=== PATIENT | female | born 1975 | race Caucasian/White ===

== ENCOUNTER 2017-02-15 18:43 | Emergency (ER) | payer OTHER ==
[2017-02-15 18:48] VITALS: TEMP 96.7
[2017-02-15] MEDS ORDERED: SODIUM CHLORIDE 0.9% 500 ML IV ONE (19:21)
[2017-02-15] MEDS ORDERED: ONDANSETRON 4 MG/2 ML VIAL IVP STA (19:21)
[2017-02-15] MEDS ORDERED: SODIUM CHLORIDE 0.9% 1,000 ML IV SCH (19:30)
[2017-02-15 20:09] VITALS: PULSE 98
[2017-02-15 20:38] VITALS: BP 119/78; RESP 16
--- NOTE | 2017-02-15 20:58 | ED ---
Overdose HPI - General Chief Complaint: Overdose Stated Complaint: Overdose Time Seen by Provider: 02/15/17 19:07 Source: patient, EMS Mode of arrival: EMS - History of Present Illness Initial Comments: This 42-year-old white female presents as a heroin overdose. She apparently was doing heroin earlier today. She is unsure what time. She denies utilizing more heroin than normal. She does utilize heroin intravenously. EMS was called apparently for some unresponsiveness. They gave her 2 mg of Narcan and she did wake up. She is complaining of some nausea now but has no other complaints. No other modifying factors. - Related Data Home Medications Medication Instructions Recorded Confirmed No Known Home Medications [No 02/15/17 02/15/17 Known Home Medications] Allergies Allergy/AdvReac Type Severity Reaction Status Date / Time No Known Allergies Allergy Verified 02/15/17 20:23 Review of Systems ROS Statement: Those systems with pertinent positive or pertinent negative responses have been documented in the HPI. ROS Other: All systems not noted in ROS Statement are negative. Past Medical History History of Any Multi-Drug Resistant Organisms: None Reported Past Psychological History: Depression Smoking Status: Current every day smoker Past Alcohol Use History: Occasional Past Drug Use History: Heroin, IV Drug Use General Exam - General Exam Comments Initial Comments: GENERAL: The patient is well nourished and well hydrated. VITAL SIGNS: Heart rate, blood pressure, respiratory rate reviewed as recorded in nurse's notes. EYES: Pupils are round and reactive. Extraocular movements are intact. No conjunctival / lid redness or swelling. ENT: No external evidence of injury, swelling, or ecchymosis. Airway is patent. Throat is clear. NECK: Nontender. No swelling or evidence of injury. No subcutaneous emphysema. Trachea is midline. No thyroid mass. HEART: Regular rate and rhythm. Good peripheral pulses. LUNGS/CHEST: Breath sounds clear and equal bilaterally. No rales, rhonchi, or wheezes. No ecchymosis, subcutaneous emphysema, or tenderness. ABDOMEN: Abdomen soft without tenderness. No palpable masses or organomegaly. No peritoneal signs. No abdominal wall swelling or ecchymosis. EXTREMITIES: No extremity tenderness. Normal muscle tone and function. No thoracolumbar tenderness. NEUROLOGIC: Sensation is grossly intact. Cranial nerve exam reveals face is symmetrical, tongue is midline, speech is clear. SKIN: No abrasions or ecchymosis is noted. No induration or masses noted. There are needle track harrington to bilateral arms. PSYCHIATRIC: Alert and oriented. Appropriate behavior and judgment. Course Vital Signs 02/15/17 02/15/17 02/15/17 18:44 20:08 20:34 Temperature 96.7 F L Pulse Rate 100 98 98 Respiratory 14 18 16 Rate Blood Pressure 149/84 119/78 O2 Sat by Pulse 100 100 100 Oximetry Medical Decision Making - Medical Decision Making The patient was seen and examined. She received some fluid hydration and some Zofran. She is feeling better on recheck. Her mental status has remained quite stable. She was counseled in regard to her heroin abuse extensively. Her EKG shows a normal sinus rhythm at a rate of [address]-T wave changes noted. The NC interval is 114, QS duration is 86, and QTc interval is 451. She is lucid on recheck and would like to be discharged. She has been watched for approximately 2 hours and it is felt as though she is stable for discharge at this point time. Disposition Clinical Impression: Heroin overdose Disposition: HOME SELF-CARE Condition: Good Instructions: Opioid Overdose (ED) Referrals: None,Stated [Primary Care Provider] - 1-2 days Time of Disposition: 20:57
== END 2017-02-15 21:03 | disposition home or self-care (01) ==
LOC: EC 18:43
DX: T40.1X1A Poisoning by heroin, accidental (unintentional), initial encounter (principal); R11.0 Nausea; F17.200 Nicotine dependence, unspecified, uncomplicated
CPT/HCPCS: 93005; 99284; 96374; 96361; J2405

== ENCOUNTER 2017-05-04 17:11 | Emergency (ER) | payer OTHER ==
[2017-05-04 17:36] VITALS: TEMP 98.2
[2017-05-04] MEDS ORDERED: ceFAZolin 1,000 MG VIAL IM STA (18:01)
--- NOTE | 2017-05-04 18:41 | XR ---
EXAMINATION TYPE: XR foot complete LT DATE OF EXAM: 05/04/2017 COMPARISON: NONE HISTORY: Pain after injury TECHNIQUE: 3 views FINDINGS: Metatarsals appear intact. There is a plantar calcaneal spur. There is soft tissue swelling in the forefoot. I see no fracture. IMPRESSION: Soft tissue swelling. No fracture.
--- NOTE | 2017-05-04 18:42 | XR ---
EXAMINATION TYPE: XR ankle complete LT DATE OF EXAM: 05/04/2017 COMPARISON: NONE HISTORY: Pain and swelling TECHNIQUE: 3 views FINDINGS: Ankle mortise is anatomic. There is mild soft tissue swelling over the lateral malleolus. I see no fracture. IMPRESSION: Soft tissue swelling. No fracture.
--- NOTE | 2017-05-04 18:47 | ED ---
Skin/Abscess/FB HPI - General Chief complaint: Skin/Abscess/Foreign Body Stated complaint: ARM SWELLING AND HOT, LEFT ANKLE PAIN/SWELLING Time Seen by Provider: 05/04/17 17:53 Source: patient Mode of arrival: ambulatory Limitations: no limitations - History of Present Illness Initial comments: Patient is a 42-year-old female presenting to the emergency department with complaints of right forearm erythema and swelling that started yesterday morning. Patient is unsure if she was bitten by a mosquito or what happened. Patient is also complaining of left ankle pain and swelling after she fell while working on a roof 2 days ago. Patient reports previous sprain to left ankle in the past. Patient currently rates left ankle pain 7 out of 10 , described as sharp, exacerbated with movement, relieved at rest. Patient was ambulatory at scene of injury and is ambulatory in the emergency department. Patient states she took Motrin and applied ice to her left ankle prior to arrival. Patient is up-to-date on tetanus immunization. Patient denies history of MRSA. Patient denies previous antibiotic use in the last 30 days. Patient denies chills, fevers, nausea, vomiting, shortness of breath, chest pain , or abdominal pain. Patient denies numbness or tingling. - Related Data Previous Rx's Medication Instructions Recorded Cephalexin [Keflex] 500 mg PO Q6HR #28 cap 05/04/17 Allergies Allergy/AdvReac Type Severity Reaction Status Date / Time No Known Allergies Allergy Verified 05/04/17 17:36 Review of Systems ROS Statement: Those systems with pertinent positive or pertinent negative responses have been documented in the HPI. ROS Other: All systems not noted in ROS Statement are negative. Past Medical History Past Medical History: No Reported History History of Any Multi-Drug Resistant Organisms: None Reported Additional Past Surgical History / Comment(s): lap cosmetic surg Past Psychological History: Depression Smoking Status: Current every day smoker Past Alcohol Use History: Occasional Past Drug Use History: Heroin, IV Drug Use, Marijuana General Exam - General Exam Comments Initial Comments: GENERAL: Pt awake and alert, well-appearing, well-nourished, and in no acute distress. HEAD: Atraumatic, normocephalic. EYES: Pupils equal, round, sclera anicteric, conjunctiva are normal. ENT: Moist mucous membranes. NECK:Normal range of motion, supple without lymphadenopathy. LUNGS: Breath sounds clear to auscultation bilaterally. No wheezes, rales, or rhonchi. HEART: Heart S1, S2, no S3 or S4. Regular rate and rhythm. No murmurs, rubs or gallops. ABDOMEN: Soft, nontender, nondistended, normoactive bowel sounds. NEUROLOGICAL: Pt oriented x 3. No focal deficits noted. Strength and sensation grossly intact. PSYCH: Normal mood, normal affect. SKIN: Erythema noted to right forearm from wrist extending up right forearm. No evidence of drainage or abscess. Limitations: no limitations Left Knee exam: Present: normal inspection, full ROM. Absent: tenderness, swelling Lower Leg exam: Present: normal inspection, full ROM. Absent: tenderness, swelling Ankle exam: Present: full ROM, tenderness (Tenderness, swelling, and ecchymosis noted to primarily left lateral malleolus and extending to dorsal aspect of left foot.), swelling, ecchymosis, erythema. Absent: crepitus Foot/Toe exam: Present: full ROM, tenderness, swelling, ecchymosis. Absent: dislocation, puncture wound, foreign body, calcaneal tenderness, tenderness at base of 5th metatarsal Neurovascular tendon exam: Present: no vascular compromise. Absent: motor deficit, sensory deficit, tendon deficit, extremity cold to touch, foot drop, significant pain with passive ROM of distal joint Gait: not tested/not observed Course Vital Signs 05/04/17 17:34 Temperature 98.2 F Pulse Rate 83 Respiratory 18 Rate Blood Pressure 129/67 O2 Sat by Pulse 100 Oximetry Medical Decision Making - Medical Decision Making Left ankle sprain without evidence of fracture or dislocation. Xavier wrap applied to left ankle. Cellulitis to right forearm. Patient given a dose of Ancef in the emergency department and provided with prescription for Keflex. Patient instructed to return to the emergency department with worsening cellulitis. Patient instructed to follow-up with primary care physician and orthopedic service if needed. Patient agrees with treatment plan. Discharge instructions and return parameters reviewed. - Radiology Data Radiology results: report reviewed Left foot x-ray: Soft tissue swelling no fracture. Left ankle x-ray: Ankle mortise is anatomic. Mild soft tissue swelling over the lateral malleolus. No fracture. Disposition Clinical Impression: Cellulitis of forearm, right, Left ankle sprain Disposition: HOME SELF-CARE Condition: Good Instructions: Cellulitis (ED), Ankle Sprain (ED) Additional Instructions: Avoid activity that causes pain Ice 20 minutes 4 times a day usually for 2-3 days Xavier wrap to provide support and limit swelling Keep elevated as much as possible 24-48 hours. Continue Motrin 800 mg every 8 hours around the clock for 2 days. Return to the emergency department with symptoms of increased swelling, pain, numbness, tingling, or foot feeling cold to touch. Return to the emergency department with increased redness to right arm, nausea, vomiting, fevers or any other worsening symptoms. Follow-up with primary service and orthopedic service as directed. Prescriptions: Cephalexin [Keflex] 500 mg PO Q6HR #28 cap Referrals: None,Stated [Primary Care Provider] - 1-2 days Time of Disposition: 18:47
[2017-05-04 18:57] VITALS: BP 124/72; PULSE 72; RESP 16
== END 2017-05-04 18:50 | disposition home or self-care (01) ==
LOC: EC 17:11
DX: S93.402A Sprain of unspecified ligament of left ankle, initial encounter (principal); S90.32XA Contusion of left foot, initial encounter; L03.113 Cellulitis of right upper limb; F17.200 Nicotine dependence, unspecified, uncomplicated; W19.XXXA Unspecified fall, initial encounter; Y93.89 Activity, other specified
CPT/HCPCS: 73610; 73630; 99283; 96372; J0690

== ENCOUNTER 2019-10-13 03:12 | Emergency (ER) | payer OTHER ==
[2019-10-13] MEDS ORDERED: diphenhydrAMINE 50 MG/ML 1 ML VIAL IVP STA (03:18)
[2019-10-13] MEDS ORDERED: FAMOTIDINE 20 MG/2 ML VIAL IV STA (03:18)
[2019-10-13] MEDS ORDERED: methylPREDNISolone SOD SUCCI 125 MG/2 ML VIAL IV STA (03:18)
[2019-10-13] MEDS ORDERED: EPINEPHrine 1 MG/ML 1 ML AMP IM STA (03:19)
[2019-10-13 03:28] VITALS: TEMP 97.6
--- NOTE | 2019-10-13 03:28 | ED ---
Allergic Reaction HPI - General Stated complaint: Allergic Reaction Time Seen by Provider: 10/13/19 03:18 - History of Present Illness Initial Comments: 's patient is a 44-year-old woman who presents to be evaluated for suspected ALLERGIC reaction. Patient states that between 12 hours ago she started noticing that she was feeling itchy and then developing hives. The patient then also felt like she was having some swelling of the lips and tongue. She felt she should evaluated for this. Patient has had prior reactions, but does not know what she may have reacted to this time. MD Complaint: allergic reaction, hives, facial swelling Onset/Timin -: hour(s) Exposure: unknown Symptoms: itching, facial swelling, lip swelling Severity: moderate Treatment Prior to Arrival: none Previous Allergy History: other (Prior ALLERGIC reactions) - Related Data Previous Rx's Medication Instructions Recorded Cephalexin [Keflex] 500 mg PO Q6HR #28 cap 05/04/17 EPINEPHrine (Auto Inject) [Epipen] 0.3 mg IM ONCE PRN #2 pen 10/13/19 Famotidine [Pepcid] 20 mg PO BID #14 tablet 10/13/19 predniSONE 60 mg PO DAILY #30 tab 10/13/19 Allergies Allergy/AdvReac Type Severity Reaction Status Date / Time No Known Allergies Allergy Verified 05/04/17 17:36 Review of Systems ROS Statement: Those systems with pertinent positive or pertinent negative responses have been documented in the HPI. ROS Other: All systems not noted in ROS Statement are negative. Constitutional: Denies: fever, chills Eyes: Denies: eye pain, vision change Respiratory: Denies: cough, dyspnea, wheezes Cardiovascular: Denies: chest pain, syncope Gastrointestinal: Denies: abdominal pain, vomiting, diarrhea Skin: Reports: as per HPI, rash Past Medical History Past Medical History: No Reported History History of Any Multi-Drug Resistant Organisms: None Reported Additional Past Surgical History / Comment(s): lap cosmetic surg Past Psychological History: Depression Smoking Status: Current every day smoker Past Alcohol Use History: Occasional Past Drug Use History: Heroin, IV Drug Use, Marijuana General Exam General appearance: alert, in no apparent distress Head exam: Present: atraumatic, normocephalic Eye exam: Present: normal appearance. Absent: scleral icterus, conjunctival injection ENT exam: Present: mucous membranes moist, other (She does have mild degree of bilateral tongue swelling. There is also swelling of upper and lower lip.) Neck exam: Present: normal inspection, full ROM Respiratory exam: Present: normal lung sounds bilaterally. Absent: respiratory distress, wheezes, rales, rhonchi, stridor Cardiovascular Exam: Present: regular rate, normal rhythm, normal heart sounds. Absent: systolic murmur, diastolic murmur, rubs, gallop GI/Abdominal exam: Present: soft. Absent: distended, tenderness, guarding Extremities exam: Present: normal inspection, normal capillary refill Neurological exam: Present: alert Skin exam: Present: warm, dry, intact, urticaria. Absent: cyanosis, diaphoretic, vesicles, petechiae, pallor, mottled Course Vital Signs 10/13/19 10/13/19 10/13/19 03:26 03:32 04:00 Temperature 97.6 F Pulse Rate 91 83 109 H Respiratory 20 11 L 12 Rate Blood Pressure 90/67 113/82 O2 Sat by Pulse 91 L 100 100 Oximetry 10/13/19 10/13/19 10/13/19 04:30 05:00 05:30 Temperature Pulse Rate 101 H 98 93 Respiratory 13 14 14 Rate Blood Pressure 121/83 120/79 101/66 O2 Sat by Pulse 100 100 100 Oximetry 10/13/19 10/13/19 06:00 06:30 Temperature Pulse Rate 87 94 Respiratory 14 8 L Rate Blood Pressure 96/65 100/69 O2 Sat by Pulse 95 94 L Oximetry Disposition Clinical Impression: Allergic reaction Disposition: HOME SELF-CARE Condition: Good Instructions (If sedation given, give patient instructions): General Allergic Reaction (ED) Prescriptions: EPINEPHrine (Auto Inject) [Epipen] 0.3 mg IM ONCE PRN #2 pen PRN Reason: Anaphylaxis Famotidine [Pepcid] 20 mg PO BID #14 tablet predniSONE 60 mg PO DAILY #30 tab Is patient prescribed a controlled substance at d/c from ED?: No Referrals: Washington Doran MD [Primary Care Provider] - 1-2 days
[2019-10-13 08:22] VITALS: BP 113/70; PULSE 101; RESP 18
== END 2019-10-13 08:20 | disposition home or self-care (01) ==
LOC: EC 03:12
DX: T78.40XA Allergy, unspecified, initial encounter (principal); F17.200 Nicotine dependence, unspecified, uncomplicated
CPT/HCPCS: 99282; 96374; 96375 ×2; 96372; J0171; J1200; J2930

== ENCOUNTER 2020-06-25 15:10 | Inpatient (IN) | payer OTHER ==
[2020-06-25] MEDS ORDERED: SODIUM CHLORIDE 0.9% 1,000 ML IV STA (15:44)
[2020-06-25] MEDS ORDERED: ACETAMINOPHEN TAB 500 MG TAB PO STA (15:44)
--- NOTE | 2020-06-25 15:57 | ED ---
General Adult HPI - General Chief complaint: Abdominal Pain Stated complaint: aches, cough Time Seen by Provider: 06/25/20 15:30 Source: patient Mode of arrival: ambulatory Limitations: no limitations - History of Present Illness Initial comments: 45-year-old female with no past medical history of presents to the emergency department with reported body aches, upset stomach and dry cough. Patient reports she woke up yesterday feeling like this. She admits to fatigue, generalized aches. Also admits to nonproductive cough and low-grade fevers. Denies any sick contacts or recent travel. Denies chest pain or shortness of breath. No underlying lung conditions. Admits to generalized abdominal tenderness with bilateral flank pain. He thought that she had a urinary tract infection a few days ago as she was experiencing dysuria and increased frequency of voiding. Drank cranberry juice and her symptoms improved. She denies concern for . No abnormal vaginal discharge. Denies melenic stools or hematochezia. No midline back pain. Denies current drug use. Has not taken any medications at home for her symptoms. No other alleviating, precipitating or modifying factors - Related Data Previous Rx's Medication Instructions Recorded Cefuroxime Axetil [Ceftin] 500 mg PO BID 7 Days #14 tab 06/28/20 Allergies Allergy/AdvReac Type Severity Reaction Status Date / Time No Known Allergies Allergy Verified 06/25/20 18:55 Review of Systems ROS Statement: Those systems with pertinent positive or pertinent negative responses have been documented in the HPI. ROS Other: All systems not noted in ROS Statement are negative. Past Medical History Past Medical History: No Reported History History of Any Multi-Drug Resistant Organisms: None Reported Past Surgical History: Tubal Ligation Additional Past Surgical History / Comment(s): lap cosmetic surg Past Psychological History: Depression Smoking Status: Current every day smoker Past Alcohol Use History: None Reported Past Drug Use History: Heroin, IV Drug Use, Marijuana General Exam Limitations: no limitations General appearance: alert, in no apparent distress Head exam: Present: atraumatic, normocephalic, normal inspection Eye exam: Present: normal appearance, PERRL, EOMI. Absent: scleral icterus, conjunctival injection, periorbital swelling ENT exam: Present: normal exam, mucous membranes moist Neck exam: Present: normal inspection. Absent: tenderness, meningismus, lymphadenopathy Respiratory exam: Present: normal lung sounds bilaterally. Absent: respiratory distress, wheezes, rales, rhonchi, stridor Cardiovascular Exam: Present: normal rhythm, tachycardia, normal heart sounds. Absent: systolic murmur, diastolic murmur, rubs, gallop, clicks GI/Abdominal exam: Present: soft, normal bowel sounds. Absent: distended, tenderness, guarding, rebound, rigid Extremities exam: Present: normal inspection, full ROM, normal capillary refill. Absent: tenderness, pedal edema, joint swelling, calf tenderness Back exam: Present: CVA tenderness (L). Absent: rash noted Neurological exam: Present: alert, oriented X3, CN II-XII intact Psychiatric exam: Present: normal affect, normal mood Skin exam: Present: warm, dry, intact, normal color. Absent: rash Course Vital Signs 06/25/20 06/25/20 06/25/20 15:24 16:57 17:30 Temperature 99.2 F Pulse Rate 129 H 119 H 120 H Respiratory 21 18 18 Rate Blood Pressure 131/90 121/76 120/88 O2 Sat by Pulse 99 98 99 Oximetry 06/25/20 06/25/20 18:42 19:32 Temperature Pulse Rate 104 H 98 Respiratory 18 15 Rate Blood Pressure 112/85 127/81 O2 Sat by Pulse 98 100 Oximetry Medical Decision Making - Medical Decision Making Upon arrival the patient is placed into room 7. A thorough history and physical exam was performed. PIV is established. Patient was given 1 L bolus of normal saline followed by 130 mL per hour. Laboratory studies were conducted. Patient went for a chest x-ray as well as a CT of her abdomen and pelvis. Lab studies remarkable for a white count of 15.8. Sodium 131. His urine is positive for nitrates, large leukocytes esterase, greater than 182 white blood cells and moderate white blood cell clumps with occasional bacteria. CT the patient's abdomen and pelvis demonstrates decreased enhancement in the left kidney upper pole suggestive of acute pyelonephritis. No renal obstruction. Chest x-ray demonstrates normal chest. The patient is reevaluated. She was given a dose of Rocephin. The patient continues to have persistent tachycardia. Because of her service criteria did recommend hospital admission for which the patient agreed to. Covid testing is pending. Patient will be admitted to [facility]. I discussed the case with Mery who accepted admission - Lab Data Result diagrams: 06/28/20 07:34 06/28/20 07:34 Lab Results 06/25/20 06/25/20 06/25/20 Range/Units 16:29 16:29 16:29 WBC 15.8 H (3.8-10.6) k/uL RBC 4.14 (3.80-5.40) m/uL Hgb 12.9 (11.4-16.0) gm/dL Hct 38.4 (34.0-46.0) % MCV 92.7 (80.0-100.0) fL MCH 31.1 (25.0-35.0) pg MCHC 33.5 (31.0-37.0) g/dL RDW 11.6 (11.5-15.5) % Plt Count 199 (150-450) k/uL Neutrophils % 84 % Neutrophils % (Manual) % Band Neutrophils % % Lymphocytes % 4 % Lymphocytes % (Manual) % Monocytes % 10 % Monocytes % (Manual) % Eosinophils % 1 % Eosinophils % (Manual) % Basophils % 0 % Neutrophils # 13.2 H (1.3-7.7) k/uL Neutrophils # (Manual) (1.3-7.7) k/uL Lymphocytes # 0.7 L (1.0-4.8) k/uL Lymphocytes # (Manual) (1.0-4.8) k/uL Monocytes # 1.5 H (0-1.0) k/uL Monocytes # (Manual) (0-1.0) k/uL Eosinophils # 0.1 (0-0.7) k/uL Eosinophils # (Manual) (0-0.7) k/uL Basophils # 0.0 (0-0.2) k/uL Nucleated RBCs (0-0) /100 WBC Manual Slide Review Poikilocytosis (manual Anisocytosis (manual) ESR (0-20) mm/hr D-Dimer (<0.60) mg/L FEU Sodium (137-145) mmol/L Potassium (3.5-5.1) mmol/L Chloride (98-107) mmol/L Carbon Dioxide (22-30) mmol/L Anion Gap mmol/L BUN (7-17) mg/dL Creatinine (0.52-1.04) mg/dL Est GFR (CKD-EPI)AfAm (>60 ml/min/1.73 sqM) Est GFR (CKD-EPI)NonAf (>60 ml/min/1.73 sqM) Glucose (74-99) mg/dL Plasma Lactic Acid Reginaldo (0.7-2.0) mmol/L Calcium (8.4-10.2) mg/dL Total Bilirubin (0.2-1.3) mg/dL AST (14-36) U/L ALT (4-34) U/L Alkaline Phosphatase (38-126) U/L Lactate Dehydrogenase (313-618) U/L C-Reactive Protein (<10.0) mg/L Total Protein (6.3-8.2) g/dL Albumin (3.5-5.0) g/dL Lipase (23-300) U/L Urine Color Urine Appearance (Clear) Urine pH (5.0-8.0) Ur Specific Essie (1.001-1.035) Urine Protein (Negative) Urine Glucose (UA) (Negative) Urine Ketones (Negative) Urine Blood (Negative) Urine Nitrite (Negative) Urine Bilirubin (Negative) Urine Urobilinogen (<2.0) mg/dL Ur Leukocyte Esterase (Negative) Urine RBC (0-5) /hpf Urine WBC (0-5) /hpf Urine WBC Clumps (None) /hpf Ur Squamous Epith Cells (0-4) /hpf Urine Bacteria (None) /hpf Urine Mucus (None) /hpf Urine HCG, Qual (Not Detectd) Coronavirus (PCR) Not Detected (Not Detected) Heterophile Antibody Negative (Negative) 06/25/20 06/25/20 06/25/20 Range/Units 16:29 16:29 16:29 WBC (3.8-10.6) k/uL RBC (3.80-5.40) m/uL Hgb (11.4-16.0) gm/dL Hct (34.0-46.0) % MCV (80.0-100.0) fL MCH (25.0-35.0) pg MCHC (31.0-37.0) g/dL RDW (11.5-15.5) % Plt Count (150-450) k/uL Neutrophils % % Neutrophils % (Manual) % Band Neutrophils % % Lymphocytes % % Lymphocytes % (Manual) % Monocytes % % Monocytes % (Manual) % Eosinophils % % Eosinophils % (Manual) % Basophils % % Neutrophils # (1.3-7.7) k/uL Neutrophils # (Manual) (1.3-7.7) k/uL Lymphocytes # (1.0-4.8) k/uL Lymphocytes # (Manual) (1.0-4.8) k/uL Monocytes # (0-1.0) k/uL Monocytes # (Manual) (0-1.0) k/uL Eosinophils # (0-0.7) k/uL Eosinophils # (Manual) (0-0.7) k/uL Basophils # (0-0.2) k/uL Nucleated RBCs (0-0) /100 WBC Manual Slide Review Poikilocytosis (manual Anisocytosis (manual) ESR (0-20) mm/hr D-Dimer (<0.60) mg/L FEU Sodium 131 L (137-145) mmol/L Potassium 3.6 (3.5-5.1) mmol/L Chloride 104 (98-107) mmol/L Carbon Dioxide 19 L (22-30) mmol/L Anion Gap 8 mmol/L BUN 7 (7-17) mg/dL Creatinine 0.65 (0.52-1.04) mg/dL Est GFR (CKD-EPI)AfAm >90 (>60 ml/min/1.73 sqM) Est GFR (CKD-EPI)NonAf >90 (>60 ml/min/1.73 sqM) Glucose 123 H (74-99) mg/dL Plasma Lactic Acid Reginaldo 0.7 (0.7-2.0) mmol/L Calcium 9.2 (8.4-10.2) mg/dL Total Bilirubin 0.7 (0.2-1.3) mg/dL AST 21 (14-36) U/L ALT 17 (4-34) U/L Alkaline Phosphatase 73 (38-126) U/L Lactate Dehydrogenase (313-618) U/L C-Reactive Protein (<10.0) mg/L Total Protein 6.5 (6.3-8.2) g/dL Albumin 3.6 (3.5-5.0) g/dL Lipase 31 (23-300) U/L Urine Color Yellow Urine Appearance Cloudy H (Clear) Urine pH 6.0 (5.0-8.0) Ur Specific Essie 1.009 (1.001-1.035) Urine Protein 1+ H (Negative) Urine Glucose (UA) 4+ H (Negative) Urine Ketones Negative (Negative) Urine Blood Small H (Negative) Urine Nitrite Positive H (Negative) Urine Bilirubin Negative (Negative) Urine Urobilinogen <2.0 (<2.0) mg/dL Ur Leukocyte Esterase Large H (Negative) Urine RBC 2 (0-5) /hpf Urine WBC >182 H (0-5) /hpf Urine WBC Clumps Moderate H (None) /hpf Ur Squamous Epith Cells <1 (0-4) /hpf Urine Bacteria Occasional H (None) /hpf Urine Mucus Rare H (None) /hpf Urine HCG, Qual (Not Detectd) Coronavirus (PCR) (Not Detected) Heterophile Antibody (Negative) 06/25/20 06/26/20 06/26/20 Range/Units 16:29 07:46 07:46 WBC 10.8 H (3.8-10.6) k/uL RBC 3.56 L (3.80-5.40) m/uL Hgb 10.8 L (11.4-16.0) gm/dL Hct 33.5 L (34.0-46.0) % MCV 94.0 (80.0-100.0) fL MCH 30.3 (25.0-35.0) pg MCHC 32.2 (31.0-37.0) g/dL RDW 11.7 (11.5-15.5) % Plt Count 181 (150-450) k/uL Neutrophils % 82 % Neutrophils % (Manual) % Band Neutrophils % % Lymphocytes % 7 % Lymphocytes % (Manual) % Monocytes % 8 % Monocytes % (Manual) % Eosinophils % 0 % Eosinophils % (Manual) % Basophils % 0 % Neutrophils # 8.8 H (1.3-7.7) k/uL Neutrophils # (Manual) (1.3-7.7) k/uL Lymphocytes # 0.8 L (1.0-4.8) k/uL Lymphocytes # (Manual) (1.0-4.8) k/uL Monocytes # 0.8 (0-1.0) k/uL Monocytes # (Manual) (0-1.0) k/uL Eosinophils # 0.1 (0-0.7) k/uL Eosinophils # (Manual) (0-0.7) k/uL Basophils # 0.0 (0-0.2) k/uL Nucleated RBCs (0-0) /100 WBC Manual Slide Review Poikilocytosis (manual Anisocytosis (manual) ESR (0-20) mm/hr D-Dimer (<0.60) mg/L FEU Sodium 136 L (137-145) mmol/L Potassium 3.7 (3.5-5.1) mmol/L Chloride 109 H (98-107) mmol/L Carbon Dioxide 22 (22-30) mmol/L Anion Gap 5 mmol/L BUN 8 (7-17) mg/dL Creatinine 0.63 (0.52-1.04) mg/dL Est GFR (CKD-EPI)AfAm >90 (>60 ml/min/1.73 sqM) Est GFR (CKD-EPI)NonAf >90 (>60 ml/min/1.73 sqM) Glucose 90 (74-99) mg/dL Plasma Lactic Acid Reginaldo (0.7-2.0) mmol/L Calcium 8.2 L (8.4-10.2) mg/dL Total Bilirubin (0.2-1.3) mg/dL AST (14-36) U/L ALT (4-34) U/L Alkaline Phosphatase (38-126) U/L Lactate Dehydrogenase (313-618) U/L C-Reactive Protein (<10.0) mg/L Total Protein (6.3-8.2) g/dL Albumin (3.5-5.0) g/dL Lipase (23-300) U/L Urine Color Urine Appearance (Clear) Urine pH (5.0-8.0) Ur Specific Essie (1.001-1.035) Urine Protein (Negative) Urine Glucose (UA) (Negative) Urine Ketones (Negative) Urine Blood (Negative) Urine Nitrite (Negative) Urine Bilirubin (Negative) Urine Urobilinogen (<2.0) mg/dL Ur Leukocyte Esterase (Negative) Urine RBC (0-5) /hpf Urine WBC (0-5) /hpf Urine WBC Clumps (None) /hpf Ur Squamous Epith Cells (0-4) /hpf Urine Bacteria (None) /hpf Urine Mucus (None) /hpf Urine HCG, Qual Not Detected (Not Detectd) Coronavirus (PCR) (Not Detected) Heterophile Antibody (Negative) 06/26/20 06/26/20 06/27/20 Range/Units 07:46 07:46 06:45 WBC 8.7 (3.8-10.6) k/uL RBC 3.62 L (3.80-5.40) m/uL Hgb 11.0 L (11.4-16.0) gm/dL Hct 34.1 (34.0-46.0) % MCV 94.2 (80.0-100.0) fL MCH 30.3 (25.0-35.0) pg MCHC 32.2 (31.0-37.0) g/dL RDW 11.7 (11.5-15.5) % Plt Count 191 (150-450) k/uL Neutrophils % 77 % Neutrophils % (Manual) % Band Neutrophils % % Lymphocytes % 8 % Lymphocytes % (Manual) % Monocytes % 10 % Monocytes % (Manual) % Eosinophils % 1 % Eosinophils % (Manual) % Basophils % 0 % Neutrophils # 6.8 (1.3-7.7) k/uL Neutrophils # (Manual) (1.3-7.7) k/uL Lymphocytes # 0.7 L (1.0-4.8) k/uL Lymphocytes # (Manual) (1.0-4.8) k/uL Monocytes # 0.8 (0-1.0) k/uL Monocytes # (Manual) (0-1.0) k/uL Eosinophils # 0.1 (0-0.7) k/uL Eosinophils # (Manual) (0-0.7) k/uL Basophils # 0.0 (0-0.2) k/uL Nucleated RBCs (0-0) /100 WBC Manual Slide Review Poikilocytosis (manual Anisocytosis (manual) ESR 29 H (0-20) mm/hr D-Dimer (<0.60) mg/L FEU Sodium (137-145) mmol/L Potassium (3.5-5.1) mmol/L Chloride (98-107) mmol/L Carbon Dioxide (22-30) mmol/L Anion Gap mmol/L BUN (7-17) mg/dL Creatinine (0.52-1.04) mg/dL Est GFR (CKD-EPI)AfAm (>60 ml/min/1.73 sqM) Est GFR (CKD-EPI)NonAf (>60 ml/min/1.73 sqM) Glucose (74-99) mg/dL Plasma Lactic Acid Reginaldo (0.7-2.0) mmol/L Calcium (8.4-10.2) mg/dL Total Bilirubin (0.2-1.3) mg/dL AST (14-36) U/L ALT (4-34) U/L Alkaline Phosphatase (38-126) U/L Lactate Dehydrogenase 377 (313-618) U/L C-Reactive Protein 237.0 H (<10.0) mg/L Total Protein (6.3-8.2) g/dL Albumin (3.5-5.0) g/dL Lipase (23-300) U/L Urine Color Urine Appearance (Clear) Urine pH (5.0-8.0) Ur Specific Essie (1.001-1.035) Urine Protein (Negative) Urine Glucose (UA) (Negative) Urine Ketones (Negative) Urine Blood (Negative) Urine Nitrite (Negative) Urine Bilirubin (Negative) Urine Urobilinogen (<2.0) mg/dL Ur Leukocyte Esterase (Negative) Urine RBC (0-5) /hpf Urine WBC (0-5) /hpf Urine WBC Clumps (None) /hpf Ur Squamous Epith Cells (0-4) /hpf Urine Bacteria (None) /hpf Urine Mucus (None) /hpf Urine HCG, Qual (Not Detectd) Coronavirus (PCR) (Not Detected) Heterophile Antibody (Negative) 06/27/20 06/27/20 06/28/20 Range/Units 06:45 15:28 07:34 WBC 7.6 (3.8-10.6) k/uL RBC 3.98 (3.80-5.40) m/uL Hgb 12.4 (11.4-16.0) gm/dL Hct 37.2 (34.0-46.0) % MCV 93.3 (80.0-100.0) fL MCH 31.0 (25.0-35.0) pg MCHC 33.2 (31.0-37.0) g/dL RDW 11.6 (11.5-15.5) % Plt Count 282 (150-450) k/uL Neutrophils % % Neutrophils % (Manual) 75 % Band Neutrophils % 2 % Lymphocytes % % Lymphocytes % (Manual) 15 % Monocytes % % Monocytes % (Manual) 6 % Eosinophils % % Eosinophils % (Manual) 2 % Basophils % % Neutrophils # (1.3-7.7) k/uL Neutrophils # (Manual) 5.80 (1.3-7.7) k/uL Lymphocytes # (1.0-4.8) k/uL Lymphocytes # (Manual) 1.14 (1.0-4.8) k/uL Monocytes # (0-1.0) k/uL Monocytes # (Manual) 0.46 (0-1.0) k/uL Eosinophils # (0-0.7) k/uL Eosinophils # (Manual) 0.15 (0-0.7) k/uL Basophils # (0-0.2) k/uL Nucleated RBCs 0 (0-0) /100 WBC Manual Slide Review Performed Poikilocytosis (manual Present Anisocytosis (manual) Present ESR (0-20) mm/hr D-Dimer 1.30 H (<0.60) mg/L FEU Sodium 137 (137-145) mmol/L Potassium 3.5 (3.5-5.1) mmol/L Chloride 108 H (98-107) mmol/L Carbon Dioxide 24 (22-30) mmol/L Anion Gap 5 mmol/L BUN 4 L (7-17) mg/dL Creatinine 0.65 (0.52-1.04) mg/dL Est GFR (CKD-EPI)AfAm >90 (>60 ml/min/1.73 sqM) Est GFR (CKD-EPI)NonAf >90 (>60 ml/min/1.73 sqM) Glucose 109 H (74-99) mg/dL Plasma Lactic Acid Reginaldo (0.7-2.0) mmol/L Calcium 8.3 L (8.4-10.2) mg/dL Total Bilirubin (0.2-1.3) mg/dL AST (14-36) U/L ALT (4-34) U/L Alkaline Phosphatase (38-126) U/L Lactate Dehydrogenase (313-618) U/L C-Reactive Protein (<10.0) mg/L Total Protein (6.3-8.2) g/dL Albumin (3.5-5.0) g/dL Lipase (23-300) U/L Urine Color Urine Appearance (Clear) Urine pH (5.0-8.0) Ur Specific Essie (1.001-1.035) Urine Protein (Negative) Urine Glucose (UA) (Negative) Urine Ketones (Negative) Urine Blood (Negative) Urine Nitrite (Negative) Urine Bilirubin (Negative) Urine Urobilinogen (<2.0) mg/dL Ur Leukocyte Esterase (Negative) Urine RBC (0-5) /hpf Urine WBC (0-5) /hpf Urine WBC Clumps (None) /hpf Ur Squamous Epith Cells (0-4) /hpf Urine Bacteria (None) /hpf Urine Mucus (None) /hpf Urine HCG, Qual (Not Detectd) Coronavirus (PCR) (Not Detected) Heterophile Antibody (Negative) 06/28/20 Range/Units 07:34 WBC (3.8-10.6) k/uL RBC (3.80-5.40) m/uL Hgb (11.4-16.0) gm/dL Hct (34.0-46.0) % MCV (80.0-100.0) fL MCH (25.0-35.0) pg MCHC (31.0-37.0) g/dL RDW (11.5-15.5) % Plt Count (150-450) k/uL Neutrophils % % Neutrophils % (Manual) % Band Neutrophils % % Lymphocytes % % Lymphocytes % (Manual) % Monocytes % % Monocytes % (Manual) % Eosinophils % % Eosinophils % (Manual) % Basophils % % Neutrophils # (1.3-7.7) k/uL Neutrophils # (Manual) (1.3-7.7) k/uL Lymphocytes # (1.0-4.8) k/uL Lymphocytes # (Manual) (1.0-4.8) k/uL Monocytes # (0-1.0) k/uL Monocytes # (Manual) (0-1.0) k/uL Eosinophils # (0-0.7) k/uL Eosinophils # (Manual) (0-0.7) k/uL Basophils # (0-0.2) k/uL Nucleated RBCs (0-0) /100 WBC Manual Slide Review Poikilocytosis (manual Anisocytosis (manual) ESR (0-20) mm/hr D-Dimer (<0.60) mg/L FEU Sodium 137 (137-145) mmol/L Potassium 3.7 (3.5-5.1) mmol/L Chloride 104 (98-107) mmol/L Carbon Dioxide 27 (22-30) mmol/L Anion Gap 6 mmol/L BUN 4 L (7-17) mg/dL Creatinine 0.68 (0.52-1.04) mg/dL Est GFR (CKD-EPI)AfAm >90 (>60 ml/min/1.73 sqM) Est GFR (CKD-EPI)NonAf >90 (>60 ml/min/1.73 sqM) Glucose 110 H (74-99) mg/dL Plasma Lactic Acid Reginaldo (0.7-2.0) mmol/L Calcium 8.8 (8.4-10.2) mg/dL Total Bilirubin (0.2-1.3) mg/dL AST (14-36) U/L ALT (4-34) U/L Alkaline Phosphatase (38-126) U/L Lactate Dehydrogenase (313-618) U/L C-Reactive Protein 124.3 H (<10.0) mg/L Total Protein (6.3-8.2) g/dL Albumin (3.5-5.0) g/dL Lipase (23-300) U/L Urine Color Urine Appearance (Clear) Urine pH (5.0-8.0) Ur Specific Essie (1.001-1.035) Urine Protein (Negative) Urine Glucose (UA) (Negative) Urine Ketones (Negative) Urine Blood (Negative) Urine Nitrite (Negative) Urine Bilirubin (Negative) Urine Urobilinogen (<2.0) mg/dL Ur Leukocyte Esterase (Negative) Urine RBC (0-5) /hpf Urine WBC (0-5) /hpf Urine WBC Clumps (None) /hpf Ur Squamous Epith Cells (0-4) /hpf Urine Bacteria (None) /hpf Urine Mucus (None) /hpf Urine HCG, Qual (Not Detectd) Coronavirus (PCR) (Not Detected) Heterophile Antibody (Negative) Disposition Clinical Impression: Flank pain, Acute pyelonephritis, SIRS (systemic inflammatory response syndrome) Disposition: ADMITTED IP TO THIS HOSP Condition: Stable Is patient prescribed a controlled substance at d/c from ED?: No Decision to Admit Reason: Admit from EC Decision Date: 06/25/20 Decision Time: 18:29
[2020-06-25 16:59] LABS: Appearance,Urine Cloudy (Clear); Bacteria,Urine Occasional /hpf; Basophils % (A) 0 %; Bilirubin,Urine Negative (Negative); Blood,Urine Small (Negative); Color,Urine Yellow; Eosinophils # (A) 0.1 k/uL (0-0.7); Eosinophils % (A) 1 %; Glucose,Urine (UA) 4+ (Negative); HCT 38.4 % (34.0-46.0); HGB 12.9 gm/dL (11.4-16.0); Ketones,Urine Negative (Negative); Leukocyte Esterase,Urine Large (Negative); Lymphocytes # (A) 0.7 k/uL (1.0-4.8); Lymphocytes % (A) 4 %; MCH 31.1 pg (25.0-35.0); MCHC 33.5 g/dL (31.0-37.0); MCV 92.7 fL (80.0-100.0); Mean Platelet Volume 7.1; Monocytes # (A) 1.5 k/uL (0-1.0); Monocytes % (A) 10 %; Mucus,Urine Rare /hpf; Neutrophils # (A) 13.2 k/uL (1.3-7.7); Neutrophils % (A) 84 %; Nitrite,Urine Positive (Negative); Platelet Count 199 k/uL (150-450); Protein,Urine 1+ (Negative); RBC 4.14 m/uL (3.80-5.40); RBC,Urine 2 /hpf (0-5); RDW 11.6 % (11.5-15.5); Specific Gravity,Urine 1.009 (1.001-1.035); Squamous Epithelial Cell,Urine <1 /hpf (0-4); Urobilinogen,Urine <2.0 mg/dL (<2.0); WBC 15.8 k/uL (3.8-10.6); WBC,Urine >182 /hpf (0-5)
[2020-06-25] MEDS ORDERED: cefTRIAXone IN SWFI 1,000 MG/10 ML SYRINGE IVP STA (17:08)
[2020-06-25 17:10] LABS: ALT 17 U/L (4-34); AST 21 U/L (14-36); African American GFR (CKD) >90 (>60 ml/min/1.73 sqM); Albumin 3.6 g/dL (3.5-5.0); Alkaline Phosphatase 73 U/L (38-126); Anion Gap 8 mmol/L; Blood Urea Nitrogen 7 mg/dL (7-17); Calcium 9.2 mg/dL (8.4-10.2); Carbon Dioxide 19 mmol/L (22-30); Chloride 104 mmol/L (98-107); Glucose 123 mg/dL (74-99); Lipase 31 U/L (23-300); Non-African American GFR(CKD) >90 (>60 ml/min/1.73 sqM); Potassium 3.6 mmol/L (3.5-5.1); Sodium 131 mmol/L (137-145); Total Bilirubin 0.7 mg/dL (0.2-1.3); Total Protein 6.5 g/dL (6.3-8.2)
--- NOTE | 2020-06-25 18:17 | CT ---
EXAMINATION TYPE: CT abdomen pelvis w con DATE OF EXAM: 06/25/2020 COMPARISON: None HISTORY: Body aches, fever and cough. CT DLP: 604.8 mGycm Automated exposure control for dose reduction was used. CONTRAST: Performed with IV Contrast, patient injected with 100ml mL of Isovue 300. Images obtained from the diaphragm to the floor the pelvis with IV contrast. Lung bases are clear. There is no pleural effusion. Heart size is normal. Liver spleen pancreas gallb ladder appear normal. Bile ducts are not dilated. There is small hiatal hernia. Stomach is intact. There is no adrenal mass. There is slight decreased cortical enhancement of the upper pole left kidne y on the lateral aspect compared to the remainder of the kidneys.. There is no hydronephrosis. There is minimal perinephric edema around left kidney. Ureters are not dilated. There is no retroperitoneal adenopathy. There is normal contrast excretion on the delayed images. Bladder distends smoothly. The re is no inguinal hernia. Uterus is anteverted. Lumbar vertebra have normal alignment. There is narro wing of L4-5 disc space. The bony pelvis is intact. Appendix is not seen. There are clips at the post erior cecum that could be from appendectomy. There is no mesenteric edema. There is no ascites or free air. There is no bowel obstruction. IMPRESSION: Decreased enhancement in the left kidney upper pole suggestive of acute pyelonephritis. No renal obst ruction.
--- NOTE | 2020-06-25 18:26 | XR ---
EXAMINATION TYPE: XR chest 2V DATE OF EXAM: 06/25/2020 COMPARISON: NONE HISTORY: Cough. Pain. TECHNIQUE: 2 views FINDINGS: Heart and mediastinum are normal. Lungs are clear of infiltrate. There is no heart failure. Bony thorax is intact. IMPRESSION: Normal chest.
[2020-06-25] MEDS ORDERED: NALOXONE 0.4 MG/ML 1 ML VIAL IV PRN (18:29)
[2020-06-25] MEDS: SODIUM CHLORIDE 0.9% 1,000 ML IV SCH ×2 (19:24→21:13)
[2020-06-25] MEDS: ACETAMINOPHEN TAB 325 MG TAB PO PRN (21:12)
[2020-06-26] MEDS: ACETAMINOPHEN TAB 325 MG TAB PO PRN (05:55)
[2020-06-26] MEDS: SODIUM CHLORIDE 0.9% 1,000 ML IV SCH ×2 (07:51→17:52)
[2020-06-26 09:25] LABS: Basophils % (A) 0 %; Eosinophils # (A) 0.1 k/uL (0-0.7); Eosinophils % (A) 0 %; HCT 33.5 % (34.0-46.0); HGB 10.8 gm/dL (11.4-16.0); Lymphocytes # (A) 0.8 k/uL (1.0-4.8); Lymphocytes % (A) 7 %; MCH 30.3 pg (25.0-35.0); MCHC 32.2 g/dL (31.0-37.0); Mean Platelet Volume 7.6; Monocytes # (A) 0.8 k/uL (0-1.0); Monocytes % (A) 8 %; Neutrophils # (A) 8.8 k/uL (1.3-7.7); Neutrophils % (A) 82 %; Platelet Count 181 k/uL (150-450); RBC 3.56 m/uL (3.80-5.40); RDW 11.7 % (11.5-15.5); WBC 10.8 k/uL (3.8-10.6)
[2020-06-26 09:37] LABS: African American GFR (CKD) >90 (>60 ml/min/1.73 sqM); Anion Gap 5 mmol/L; Blood Urea Nitrogen 8 mg/dL (7-17); Calcium 8.2 mg/dL (8.4-10.2); Carbon Dioxide 22 mmol/L (22-30); Chloride 109 mmol/L (98-107); Glucose 90 mg/dL (74-99); Non-African American GFR(CKD) >90 (>60 ml/min/1.73 sqM); Potassium 3.7 mmol/L (3.5-5.1); Sodium 136 mmol/L (137-145)
[2020-06-26] MEDS ORDERED: KETOROLAC 15 MG/ML 1 ML VIAL IVP PRN (14:57)
[2020-06-26] MEDS: IBUPROFEN 400 MG TAB PO PRN (15:39)
[2020-06-26] MEDS: PANTOPRAZOLE 40 MG/10 ML VIAL IVP SCH (15:44)
--- NOTE | 2020-06-26 18:24 | HP ---
HISTORY AND PHYSICAL DATE OF SERVICE: 06/26/2020 CHIEF COMPLAINTS: Generalized aches and pains in left flank pain. HISTORY OF PRESENT ILLNESS: This 45-year-old woman with a past medical history of no history of medical illness except depression, tubal ligation, being followed by Dr. Washington Doran in the outpatient setting was complaining of generalize weakness, tiredness, some dry cough, upset stomach. The patient also has fatigue and aches also. The patient came to [facility] and admitted for further evaluation and treatment. The evaluation showed elevated WBC, and sodium was 131. UA was significantly abnormal with WBC and WBC clumps. Atrophic antibody was negative. The patient also had a chest x-ray which was personally reviewed by me, reported as normal. The patient also had abdominal pelvis CAT scan which showed evidence of abnormality in the superior pole of the left kidney and acute pyelonephritis. Patient was admitted for culture and treatment. There is no history of fever or any chills. No history of headache, loss conscious or seizures at this time. No history of any contact with sick individuals. PAST MEDICAL HISTORY: History of tubal ligation, history of laparoscopic cosmetic surgery, history of depression, history of nicotine dependence. MEDICATIONS: Home medications none. ALLERGIES: None. FAMILY HISTORY: No history of heart disease or strokes in the family. SOCIAL HISTORY: History of previous heroin IV drug abuse. History of THC. History of nicotine dependence, history of depression. REVIEW OF SYSTEMS: CARDIOVASCULAR SYSTEM: No angina. RESPIRATIONS: As mentioned earlier. : As mentioned earlier. GI: As mentioned earlier. NERVOUS SYSTEM: No numbness or weakness. ALLERGY/IMMUNOLOGY: No asthma. MUSCULOSKELETAL: As mentioned earlier. HEMATOLOGY: As mentioned earlier. ENDOCRINE: No history of diabetes or hypothyroidism. CONSTITUTIONAL: As mentioned earlier. DERMATOLOGY: Negative. RHEUMATOLOGY: ENT: Negative. PHYSICAL EXAM: Patient alert and oriented x2. Pulse 84, blood pressure 160/60, respirations 16, temperature 98.3. The pulse ox is 98% on room air. HEENT: Conjunctivae normal. T-max 100-102.9. NECK: No jugular venous distention. CARDIOVASCULAR SYSTEM: S1, S2 muffled. RESPIRATORY SYSTEM: Breath sounds diminished at the bases, a few scattered rhonchi and crackles. ABDOMEN: Soft, nontender. No mass palpable. Minimal tenderness in the left renal angle present. NERVOUS SYSTEM: Higher functions as mentioned earlier. Moves all four limbs. No focal motor or sensory deficit. LYMPHATICS: No lymph nodes in the neck or axillae. SKIN: No ulcer, no rashes. JOINTS: No active deforming arthropathy. LABS: At this time shows WBC 15.8 and sodium 131, glucose 123. UA noted. ASSESSMENT: 1. Acute fever with possible sepsis, rule out COVID-19. 2. Possible acute pyelonephritis, left sided with sepsis. 3. Increased WBC. 4. Anemia, normocytic anemia of chronic disease. 5. Hyponatremia. 6. Increased random blood sugar. 7. History of IV drug abuse, heroin. 8. History of nicotine dependence. 9. History of THC. 10.History of depression. 11.History of tubal ligation. 12.History of cosmetic surgery. 13.FULL CODE. RECOMMENDATIONS AND DISCUSSION: In this 45-year-old woman who presented with multiple complex medical issues, we will monitor the patient closely. Continue the current management and symptomatic treatment. Will continue with empiric antibiotics. Otherwise also recommend COVID-19 testing and cultures also. Repeat labs will be ordered. There are no home medications but otherwise we will continue to monitor. Prognosis guarded because of multiple complex medical issues and further recommendations to follow. MMODL / IJN: [id number] /
[2020-06-26] MEDS: HEPARIN SODIUM,PORCINE 5,000 UNIT/ML 1 ML VIAL SQ SCH (20:36)
[2020-06-27] MEDS: SODIUM CHLORIDE 0.9% 1,000 ML IV SCH ×2 (00:02→09:54)
[2020-06-27 07:36] LABS: Basophils % (A) 0 %; Eosinophils # (A) 0.1 k/uL (0-0.7); Eosinophils % (A) 1 %; HCT 34.1 % (34.0-46.0); Lymphocytes # (A) 0.7 k/uL (1.0-4.8); Lymphocytes % (A) 8 %; MCH 30.3 pg (25.0-35.0); MCHC 32.2 g/dL (31.0-37.0); MCV 94.2 fL (80.0-100.0); Mean Platelet Volume 7.7; Monocytes # (A) 0.8 k/uL (0-1.0); Monocytes % (A) 10 %; Neutrophils # (A) 6.8 k/uL (1.3-7.7); Neutrophils % (A) 77 %; Platelet Count 191 k/uL (150-450); RBC 3.62 m/uL (3.80-5.40); RDW 11.7 % (11.5-15.5); WBC 8.7 k/uL (3.8-10.6)
[2020-06-27 07:38] LABS: African American GFR (CKD) >90 (>60 ml/min/1.73 sqM); Anion Gap 5 mmol/L; Blood Urea Nitrogen 4 mg/dL (7-17); Calcium 8.3 mg/dL (8.4-10.2); Carbon Dioxide 24 mmol/L (22-30); Chloride 108 mmol/L (98-107); Glucose 109 mg/dL (74-99); Non-African American GFR(CKD) >90 (>60 ml/min/1.73 sqM); Potassium 3.5 mmol/L (3.5-5.1); Sodium 137 mmol/L (137-145)
[2020-06-27] MEDS: PANTOPRAZOLE 40 MG/10 ML VIAL IVP SCH (09:46)
[2020-06-27] MEDS: HEPARIN SODIUM,PORCINE 5,000 UNIT/ML 1 ML VIAL SQ SCH ×2 (09:49→20:50)
[2020-06-27] MEDS: IBUPROFEN 400 MG TAB PO PRN (09:53)
--- NOTE | 2020-06-27 17:11 | CT ---
EXAMINATION TYPE: CT angio chest DATE OF EXAM: 06/27/2020 COMPARISON: None HISTORY: elevated d-dimer CT DLP: 235 mGycm Automated exposure control for dose reduction was used. CONTRAST: Performed with IV Contrast, patient injected with 80cc mL of Isovue 370. There are 3-D post processed images. There is minimal pleural thickening and focal atelectasis at the posterior lung bases. There is no pl eural effusion. Heart size is normal. There is no pericardial effusion. There is no mediastinal adenopathy. There are no hilar masses. There is normal contrast opacification of the pulmonary arteries. There are no filling defects. The bony thorax is intact. There is no compression fracture. Sternum is intact. IMPRESSION: Minimal focal atelectasis at the posterior lung bases. Otherwise negative exam. No evidence of pulmon albert embolism.
--- NOTE | 2020-06-27 17:11 | PN ---
PROGRESS NOTE DATE OF SERVICE: 06/27/2020 This 45-year-old woman was admitted with acute fever with along with acute pyelonephritis. The Covid-19 is negative at this time. Otherwise, routine cultures are pending. CRP is elevated 237. No chest pain. No palpitations. No fever. PHYSICAL EXAMINATION: Alert and oriented x3. The pulse is 84, blood pressure 107/72, respiration 18, temperature 98.4, pulse ox 100 percent on room air. HEENT: Conjunctivae normal. NECK: No JVD. CARDIOVASCULAR: S1, S2 muffled. RESPIRATORY: Scattered rhonchi. No crackles. ABDOMEN: Soft, nontender. LEGS are no edema. No swelling. NERVOUS SYSTEM: No focal deficits. LABS: WBC 8.2, hemoglobin 11. Sodium 130, potassium 3.5. ASSESSMENT: 1. Acute fever with possible sepsis, possible acute pyelonephritis. 2. COVID-19 ruled out. 3. Increased WBC. 4. Increased CRP. 5. Anemia, normocytic anemia of chronic disease. 6. Hyponatremia. 7. Increased random blood sugar. 8. History of IV drug abuse, heroin. 9. History of nicotine dependence. 10.History of THC. 11.History of depression. 12.History of tubal ligation. 13.History of cosmetic surgery. 14.FULL CODE. RECOMMENDATIONS AND DISCUSSION: Recommend to continue current medications and symptomatic treatment. Otherwise, at this time I recommend continue the antibiotics and follow the cultures. Would also recommend a 2D echo with Doppler and repeat labs. Guarded prognosis. Further recommendations to follow. MMODL / IJN: [id number] /
[2020-06-28 07:06] VITALS: BP 117/75; PULSE 86; RESP 14; TEMP 98.9
[2020-06-28] MEDS: PANTOPRAZOLE 40 MG/10 ML VIAL IVP SCH (07:45)
[2020-06-28] MEDS: HEPARIN SODIUM,PORCINE 5,000 UNIT/ML 1 ML VIAL SQ SCH (07:46)
[2020-06-28 08:03] LABS: African American GFR (CKD) >90 (>60 ml/min/1.73 sqM); Anion Gap 6 mmol/L; Blood Urea Nitrogen 4 mg/dL (7-17); Calcium 8.8 mg/dL (8.4-10.2); Carbon Dioxide 27 mmol/L (22-30); Chloride 104 mmol/L (98-107); Glucose 110 mg/dL (74-99); Non-African American GFR(CKD) >90 (>60 ml/min/1.73 sqM); Potassium 3.7 mmol/L (3.5-5.1); Sodium 137 mmol/L (137-145)
[2020-06-28 08:06] LABS: HCT 37.2 % (34.0-46.0); HGB 12.4 gm/dL (11.4-16.0); MCHC 33.2 g/dL (31.0-37.0); MCV 93.3 fL (80.0-100.0); Mean Platelet Volume 8.8; Platelet Count 282 k/uL (150-450); RBC 3.98 m/uL (3.80-5.40); RDW 11.6 % (11.5-15.5); WBC 7.6 k/uL (3.8-10.6)
[2020-06-28 08:53] LABS: Band Neutrophils % 2 %; Eosinophils # (M) 0.15 k/uL (0-0.7); Lymphocytes # (M) 1.14 k/uL (1.0-4.8); Monocytes # (M) 0.46 k/uL (0-1.0); Neutrophils % (M) 75 %; Nucleated Red Blood Cells 0 /100 WBC (0-0); Total Cells Counted 100
[2020-06-28 08:55] LABS: Anisocytosis (M) Present; Poikilocytosis (M) Present
[2020-06-28 09:42] LABS: C Reactive Protein 124.3 mg/L (<10.0)
--- NOTE | 2020-06-28 17:40 | ECHOF ---
Referral Reason:elevated d-dimer MEASUREMENTS -------- HEIGHT: 162.6 cm WEIGHT: 56.7 kg BP: RVIDd: 2.3 cm (< 3.3) IVSd: 0.7 cm (0.6 - 1.1) LVIDd: 3.5 cm (3.9 - 5.3) LVPWd: 0.8 cm (0.6 - 1.1) IVSs: 0.8 cm LVIDs: 2.6 cm LVPWs: 1.1 cm LAESV Index (A-L): 16.86 ml/m Ao Diam: 2.7 cm (2.0 - 3.7) AV Cusp: 1.4 cm (1.5 - 2.6) LA Diam: 2.7 cm (2.7 - 3.8) MV EXCURSION: 21.475 mm (> 18.000) MV EF SLOPE: 169 mm/s (70 - 150) EPSS: 1.1 cm MV E Godfrey: 0.64 m/s MV DecT: 275 ms MV A Godfrey: 0.47 m/s MV E/A Ratio: 1.36 RAP: 5.00 mmHg RVSP: 10.82 mmHg FINDINGS -------- This was a technically adequate study. The left ventricular size is normal. Left ventricular wall thickness is normal. Overall left vent ricular systolic function is low-normal with, an EF between 50 - 55 %. The diastolic filling patter n is normal for the age of the patient 8.13. The right ventricle is normal in size. The left atrial size is normal. Normal LA size by volume 22+/-6 ml/m2. The right atrial size is normal. The aortic valve is trileaflet and appears structurally normal. The mitral valve is normal. There is trace mitral regurgitation. The tricuspid valve appears structurally normal. Trace tricuspid regurgitation present. Right stuart tricular systolic pressure is normal at < 35 mmHg. There is no pulmonic regurgitation present. The aortic root size is normal. Normal inferior vena cava with normal inspiratory collapse consistent with estimated right atrial pre ssure of 5 mmHg. There is no pericardial effusion. CONCLUSIONS -------- 1. The left ventricular size is normal. 2. Left ventricular wall thickness is normal. 3. Overall left ventricular systolic function is low-normal with, an EF between 50 - 55 %. 4. The diastolic filling pattern is normal for the age of the patient 8.13 5. There is trace mitral regurgitation. 6. Trace tricuspid regurgitation present. CRANKSHAFT GRINDER: Anai Mahmood RDCS
--- NOTE | 2020-06-29 10:37 | P.DS ---
Providers Date of admission: 06/28/20 09:07 Expected date of discharge: 06/28/20 Attending physician: Britany Diaz Primary care physician: Washington Doran [facility] Course: Final diagnosis Acute fever with possible sepsis, possible acute pyelonephritis Covid 19 ruled out Increased WBC Increased CRP Anemia, normocytic anemia of chronic disease Hyponatremia Increased random blood sugar History of IV drug abuse, heroin History of nicotine dependence History of THC History of depression History of tubal ligation History of cosmetic surgery Full code Discharge disposition Patient is being discharged in a stable condition with guarded prognosis to Home. Patient will follow-up with Dr. Doran in the outpatient setting upon discharge. Patient is to continue with a short course of oral antibiotics in the form of Ceftin 500 mg twice daily for the next one week. Total time taken is greater than 35 minutes. History of present illness This is a 45-year-old male who was recently admitted With Acute fever along with acute pyelonephritis and was being closely monitored. Patient underwent Covid 19 testing which was negative. Patient had an elevated D dimer and underwent CTA showing no pulmonary embolism, Minimal atelectasis noted. She also had a 2- D echo showing overall left ventricular systolic function is low to normal with an EF of 50-55%. Patient also has an elevated CRP and prescriptions were provided to follow-up with repeat labs in a few days to monitor this along with CBC and CMP. Patient urine and blood cultures thus far have remained negative. Patient was on IV antibiotics and has transitioned to Ceftin 500 mg twice daily for the next one week. Patient instructed to follow-up with Dr. Doran in the outpatient setting upon discharge. Currently no reports of chest pain, shortness of breath, or palpitations. Patient is afebrile. No reports of nausea or vomiting and patient is tolerating diet. Patient will be discharged home today. On exam vital signs are stable. Temp is 98.9F, pulse is 86, respirations are 14, blood pressure is 117/75, oxygen saturation is 95% on room air. Cardio S1, S2 are muffled. Respiratory system shows diminished breath sounds at the bases with no wheezing or rhonchi noted. Abdomen is soft and nontender. Nervous system shows No focal deficits. Please refer to medication reconciliation sheet for a list of medications. Patient Condition at Discharge: Stable Plan - Discharge Summary Discharge Rx Participant: No New Discharge Prescriptions: New Cefuroxime Axetil [Ceftin] 500 mg PO BID 7 Days #14 tab Discharge Medication List Cefuroxime Axetil [Ceftin] 500 mg PO BID 7 Days #14 tab 06/28/20 [Rx] Follow up Appointment(s)/Referral(s): Washington Doran MD [Primary Care Provider] - 1-2 days (Office closed at time of discharge please call SundayJune 29 to set up a follow up appointment) Ambulatory/Diagnostic Orders: C Reactive Protein [LAB.AMB] Time Frame: 3 Days, Location: None Selected Complete Blood Count w/diff [LAB.AMB] Time Frame: 3 Days, Location: None Selected Comprehensive Metabolic Panel [LAB.AMB] Time Frame: 3 Days, Location: None Selected Patient Instructions/Handouts: Kidney Infection (DC) Activity/Diet/Wound Care/Special Instructions: Activity Limited until follow-up Continue current diet Follow-up with primary care provider upon discharge Continue with antibiotics for 7 days until finished Repeat labs in 2-3 days Discharge Disposition: HOME SELF-CARE
== END 2020-06-28 13:03 | disposition home or self-care (01) | DRG 872 ==
LOC: EC 15:10 → 4SSUR 18:29 → OBSVTOIN 06-28 09:07
PROVIDERS: ADMIT Internal Medicine; ATTEND Internal Medicine
DX: A41.9 Sepsis, unspecified organism (principal); N10 Acute pyelonephritis; E87.1 Hypo-osmolality and hyponatremia; Z20.828 Contact with and (suspected) exposure to other viral communicable diseases; F17.200 Nicotine dependence, unspecified, uncomplicated; Z71.6 Tobacco abuse counseling; Z86.59 Personal history of other mental and behavioral disorders; Z98.51 Tubal ligation status; Z98.890 Other specified postprocedural states; F11.11 Opioid abuse, in remission; F12.11 Cannabis abuse, in remission; D63.8 Anemia in other chronic diseases classified elsewhere
CPT/HCPCS: 36415; 71046; 71275; 74177; 80048; 80053; 81001; 81025; 83605; 83615; 83690; 85025; 85379; 85652; 86140; 86308; 87040; 87086; 93306; 96361; 96374; 99285

== ENCOUNTER 2022-06-16 07:27 | Emergency (ER) | payer OTHER ==
[2022-06-16 07:32] VITALS: TEMP 97.8
[2022-06-16] MEDS ORDERED: KETOROLAC 15 MG/ML 1 ML VIAL IM STA (07:54)
--- NOTE | 2022-06-16 07:55 | ED ---
Abdominal Pain HPI - General Chief Complaint: Abdominal Pain Stated Complaint: ABD Pain Time Seen by Provider: 06/16/22 07:50 Source: patient, RN notes reviewed, old records reviewed Mode of arrival: ambulatory Limitations: no limitations - History of Present Illness Initial Comments: Well-appearing 47-year-old female that presents ambulatory to the emergency room with complaints of lower abdominal fullness for one day. Patient states she has no vaginal discharge or vaginal bleeding. Denies any dysuria. She states that she is sexually active with the same partner for the past 5 years, she is not concerned for sexual transmitted infections. She denies any fevers, no nausea vomiting or diarrhea. She is a daily smoker. MD Complaint: abdominal pain -: days(s) (1) Location: suprapubic Radiation: none Migration to: no migration Severity scale (1-10): 8 Quality: fullness Consistency: constant Improves With: nothing Worsens With: nothing Associated Symptoms: denies other symptoms - Related Data Previous Rx's Medication Instructions Recorded cefUROXime axetiL [Ceftin] 500 mg PO BID 7 Days #14 tab 06/28/20 Docusate [Colace] 100 mg PO DAILY PRN 30 Days #30 06/16/22 capsule Allergies Allergy/AdvReac Type Severity Reaction Status Date / Time No Known Allergies Allergy Verified 06/16/22 07:32 Review of Systems ROS Statement: Those systems with pertinent positive or pertinent negative responses have been documented in the HPI. ROS Other: All systems not noted in ROS Statement are negative. Past Medical History Past Medical History: No Reported History History of Any Multi-Drug Resistant Organisms: None Reported Past Surgical History: Tubal Ligation Additional Past Surgical History / Comment(s): lap cosmetic surg Past Anesthesia/Blood Transfusion Reactions: No Reported Reaction Past Psychological History: Depression Smoking Status: Current every day smoker Past Alcohol Use History: None Reported Past Drug Use History: Heroin, IV Drug Use, Marijuana General Exam Limitations: no limitations General appearance: alert, in no apparent distress Head exam: Present: atraumatic Eye exam: Absent: scleral icterus, conjunctival injection, periorbital swelling Respiratory exam: Present: normal lung sounds bilaterally. Absent: respiratory distress, accessory muscle use Cardiovascular Exam: Present: tachycardia GI/Abdominal exam: Present: soft, tenderness (Mid lower abdominal pain). Absent: distended, guarding, rebound, rigid, mass Extremities exam: Present: normal inspection, normal capillary refill. Absent: pedal edema Back exam: Absent: CVA tenderness (R), CVA tenderness (L) Neurological exam: Present: alert, oriented X3, normal gait Psychiatric exam: Present: normal affect, normal mood Skin exam: Present: warm, dry, normal color. Absent: cyanosis, diaphoretic Course Vital Signs 06/16/22 06/16/22 06/16/22 07:30 09:39 13:22 Temperature 97.8 F Pulse Rate 119 H 98 80 Respiratory 20 16 16 Rate Blood Pressure 106/72 121/71 107/66 O2 Sat by Pulse 100 97 100 Oximetry - Reevaluation(s) Reevaluation #1: 06/16/22 10:20 On reexam patient has worsening left lower quadrant pain. CT was ordered. Time: 10:20 Medical Decision Making - Medical Decision Making Patient does have mild leukocytosis at 13, no evidence lactic acidosis. Hemoglobin and hematocrit are stable and electrolytes are unremarkable. CT shows sigmoid colon colitis with moderate to large stool burdon throughout the colon, no evidence of bowel obstruction. Vital signs are stable. Patient was given a prescription for Colace to take daily for constipation which is likely the cause of her abdominal pain.. She was encouraged to follow up with her primary care doctor next week. Strict return parameters were discussed and I did advise patient to return to the emergency room with any persistent nausea vomiting, fevers or increased pain. She is agreeable to this plan of care. Case discussed with Dr. French. - Lab Data Result diagrams: 06/16/22 08:44 06/16/22 08:44 Lab Results 06/16/22 06/16/22 06/16/22 Range/Units 08:44 08:44 08:44 WBC 13.1 H (3.8-10.6) k/uL RBC 4.41 (3.80-5.40) m/uL Hgb 13.6 (11.4-16.0) gm/dL Hct 41.3 (34.0-46.0) % MCV 93.8 (80.0-100.0) fL MCH 30.9 (25.0-35.0) pg MCHC 33.0 (31.0-37.0) g/dL RDW 11.7 (11.5-15.5) % Plt Count 256 (150-450) k/uL MPV 7.5 Neutrophils % 86 % Lymphocytes % 6 % Monocytes % 6 % Eosinophils % 1 % Basophils % 0 % Neutrophils # 11.3 H (1.3-7.7) k/uL Lymphocytes # 0.8 L (1.0-4.8) k/uL Monocytes # 0.8 (0-1.0) k/uL Eosinophils # 0.1 (0-0.7) k/uL Basophils # 0.0 (0-0.2) k/uL Sodium 133 L (137-145) mmol/L Potassium 3.8 (3.5-5.1) mmol/L Chloride 103 (98-107) mmol/L Carbon Dioxide 24 (22-30) mmol/L Anion Gap 6 mmol/L BUN 12 (7-17) mg/dL Creatinine 0.71 (0.52-1.04) mg/dL Est GFR (CKD-EPI)AfAm >90 (>60 ml/min/1.73 sqM) Est GFR (CKD-EPI)NonAf >90 (>60 ml/min/1.73 sqM) Glucose 103 H (74-99) mg/dL Plasma Lactic Acid Reginaldo 0.8 (0.7-2.0) mmol/L Calcium 8.9 (8.4-10.2) mg/dL Total Bilirubin 0.8 (0.2-1.3) mg/dL AST 18 (14-36) U/L ALT 14 (4-34) U/L Alkaline Phosphatase 85 (38-126) U/L Total Protein 7.1 (6.3-8.2) g/dL Albumin 4.0 (3.5-5.0) g/dL Amylase 34 (30-110) U/L Lipase 35 (23-300) U/L Urine Color Urine Appearance (Clear) Urine pH (5.0-8.0) Ur Specific [place] (1.001-1.035) Urine Protein (Negative) Urine Glucose (UA) (Negative) Urine Ketones (Negative) Urine Blood (Negative) Urine Nitrite (Negative) Urine Bilirubin (Negative) Urine Urobilinogen (<2.0) mg/dL Ur Leukocyte Esterase (Negative) Urine RBC (0-5) /hpf Urine WBC (0-5) /hpf Ur Squamous Epith Cells (0-4) /hpf Urine Bacteria (None) /hpf Urine Mucus (None) /hpf Urine HCG, Qual (Not Detectd) 06/16/22 06/16/22 Range/Units 12:05 12:05 WBC (3.8-10.6) k/uL RBC (3.80-5.40) m/uL Hgb (11.4-16.0) gm/dL Hct (34.0-46.0) % MCV (80.0-100.0) fL MCH (25.0-35.0) pg MCHC (31.0-37.0) g/dL RDW (11.5-15.5) % Plt Count (150-450) k/uL MPV Neutrophils % % Lymphocytes % % Monocytes % % Eosinophils % % Basophils % % Neutrophils # (1.3-7.7) k/uL Lymphocytes # (1.0-4.8) k/uL Monocytes # (0-1.0) k/uL Eosinophils # (0-0.7) k/uL Basophils # (0-0.2) k/uL Sodium (137-145) mmol/L Potassium (3.5-5.1) mmol/L Chloride (98-107) mmol/L Carbon Dioxide (22-30) mmol/L Anion Gap mmol/L BUN (7-17) mg/dL Creatinine (0.52-1.04) mg/dL Est GFR (CKD-EPI)AfAm (>60 ml/min/1.73 sqM) Est GFR (CKD-EPI)NonAf (>60 ml/min/1.73 sqM) Glucose (74-99) mg/dL Plasma Lactic Acid Reginaldo (0.7-2.0) mmol/L Calcium (8.4-10.2) mg/dL Total Bilirubin (0.2-1.3) mg/dL AST (14-36) U/L ALT (4-34) U/L Alkaline Phosphatase (38-126) U/L Total Protein (6.3-8.2) g/dL Albumin (3.5-5.0) g/dL Amylase (30-110) U/L Lipase (23-300) U/L Urine Color Yellow Urine Appearance Clear (Clear) Urine pH 6.0 (5.0-8.0) Ur Specific [place] >1.050 H (1.001-1.035) Urine Protein 1+ H (Negative) Urine Glucose (UA) Negative (Negative) Urine Ketones 1+ H (Negative) Urine Blood Small H (Negative) Urine Nitrite Negative (Negative) Urine Bilirubin Negative (Negative) Urine Urobilinogen 3.0 (<2.0) mg/dL Ur Leukocyte Esterase Negative (Negative) Urine RBC 2 (0-5) /hpf Urine WBC 3 (0-5) /hpf Ur Squamous Epith Cells 25 H (0-4) /hpf Urine Bacteria Rare H (None) /hpf Urine Mucus Rare H (None) /hpf Urine HCG, Qual Not Detected (Not Detectd) Disposition Clinical Impression: Colitis, Constipation Disposition: HOME SELF-CARE Condition: Good Instructions (If sedation given, give patient instructions): Constipation (ED), Colitis (ED) Additional Instructions: Today your CT scan showed colitis with constipation. Colitis is usually viral in nature and will resolve on its own. Increase your fluid intake, take Colace daily for constipation. Return to the emergency room with any new or concerning symptoms including increased pain, resistant nausea vomiting or fevers. Follow-up with the primary care doctor next week. Prescriptions: Docusate [Colace] 100 mg PO DAILY PRN 30 Days #30 capsule PRN Reason: Constipation Is patient prescribed a controlled substance at d/c from ED?: No Referrals: Washington Doran MD [Primary Care Provider] - 1-2 days Time of Disposition: 12:33
[2022-06-16] MEDS ORDERED: KETOROLAC 15 MG/ML 1 ML VIAL IVP STA (07:57)
[2022-06-16] MEDS ORDERED: SODIUM CHLORIDE 0.9% 1,000 ML IV STA (07:57)
[2022-06-16 08:57] LABS: Basophils % (A) 0 %; Eosinophils # (A) 0.1 k/uL (0-0.7); Eosinophils % (A) 1 %; HCT 41.3 % (34.0-46.0); HGB 13.6 gm/dL (11.4-16.0); Lymphocytes # (A) 0.8 k/uL (1.0-4.8); Lymphocytes % (A) 6 %; MCH 30.9 pg (25.0-35.0); MCV 93.8 fL (80.0-100.0); Mean Platelet Volume 7.5; Monocytes # (A) 0.8 k/uL (0-1.0); Monocytes % (A) 6 %; Neutrophils # (A) 11.3 k/uL (1.3-7.7); Neutrophils % (A) 86 %; Platelet Count 256 k/uL (150-450); RBC 4.41 m/uL (3.80-5.40); RDW 11.7 % (11.5-15.5); WBC 13.1 k/uL (3.8-10.6)
[2022-06-16 09:11] LABS: ALT 14 U/L (4-34); AST 18 U/L (14-36); African American GFR (CKD) >90 (>60 ml/min/1.73 sqM); Alkaline Phosphatase 85 U/L (38-126); Amylase 34 U/L (30-110); Anion Gap 6 mmol/L; Blood Urea Nitrogen 12 mg/dL (7-17); Calcium 8.9 mg/dL (8.4-10.2); Carbon Dioxide 24 mmol/L (22-30); Chloride 103 mmol/L (98-107); Glucose 103 mg/dL (74-99); Lipase 35 U/L (23-300); Non-African American GFR(CKD) >90 (>60 ml/min/1.73 sqM); Potassium 3.8 mmol/L (3.5-5.1); Sodium 133 mmol/L (137-145); Total Bilirubin 0.8 mg/dL (0.2-1.3); Total Protein 7.1 g/dL (6.3-8.2)
[2022-06-16 09:41] VITALS: RESP 16
--- NOTE | 2022-06-16 11:12 | CT ---
EXAMINATION TYPE: CT abdomen pelvis w con CT DLP: 608.3 mGycm, Automated exposure control for dose reduction was used. DATE OF EXAM: 06/16/2022 10:45 AM COMPARISON: CT abdomen pelvis 06/25/2020 CLINICAL INDICATION:Female, 47 years old with history of LLQ pain TECHNIQUE: Axial CT of the abdomen and pelvis. Sagittal and coronal reformats were created on a [employer] workstation. Contrast used:100 mL of Isovue 300 with IV Contrast, Oral contrast used: without Oral Contrast FINDINGS: LOWER CHEST: Visualized rest implants. The visualized portions appear intact. ABDOMEN LIVER: Unremarkable GALLBLADDER AND BILE DUCTS: Unremarkable. PANCREAS: Unremarkable. SPLEEN: Unremarkable. ADRENAL GLANDS: Unremarkable. KIDNEYS AND URETERS: No evidence of hydronephrosis or renal calculus. The ureters are unremarkable. PELVIS BLADDER: Unremarkable REPRODUCTIVE: Unremarkable. ABDOMEN & PELVIS STOMACH AND BOWEL: Intimal thickening of the sigmoid colon measuring up to 8 mm. There is inflammator y changes. There is a moderate to large stool burden throughout the colon. No evidence of bowel obstr uction. PERITONEUM: No evidence of pneumoperitoneum or free fluid. VASCULATURE: No evidence of aortic aneurysm. MUSCULOSKELETAL: No acute osseous abnormalities, mild multilevel disc degeneration changes are seen t hroughout the spine. These findings are worse at L4-L5. Mild levoscoliosis apex L4. LYMPH NODES: No gross evidence for lymphadenopathy. SOFT TISSUE/ABDOMINAL WALL: Unremarkable IMPRESSION: Sigmoid colon colitis. No evidence of organizing fluid collection to suggest abscess. No free air.
[2022-06-16 12:33] LABS: Appearance,Urine Clear (Clear); Bacteria,Urine Rare /hpf; Bilirubin,Urine Negative (Negative); Blood,Urine Small (Negative); Color,Urine Yellow; Glucose,Urine (UA) Negative (Negative); Ketones,Urine 1+ (Negative); Leukocyte Esterase,Urine Negative (Negative); Mucus,Urine Rare /hpf; Nitrite,Urine Negative (Negative); Protein,Urine 1+ (Negative); RBC,Urine 2 /hpf (0-5); Squamous Epithelial Cell,Urine 25 /hpf (0-4); WBC,Urine 3 /hpf (0-5)
[2022-06-16 12:40] LABS: Specific Gravity,Urine >1.050 (1.001-1.035)
[2022-06-16 13:23] VITALS: BP 107/66; PULSE 80
[2022-06-19 11:24] LABS: Chlamydia trachomatis rRNA Not detected (Not detected); Neisseria gonorrhoeae rRNA Not detected (Not detected)
== END 2022-06-16 13:22 | disposition home or self-care (01) ==
LOC: EC 07:27
DX: K52.9 Noninfective gastroenteritis and colitis, unspecified (principal); K59.00 Constipation, unspecified; F32.A Depression, unspecified; F17.200 Nicotine dependence, unspecified, uncomplicated; F12.90 Cannabis use, unspecified, uncomplicated; Z79.899 Other long term (current) drug therapy
CPT/HCPCS: 36415; 80053; 87491; 82150; 83605; 83690; 85025; 81001; 81025; 87661; 74177; 99284; 96374; 96361; J1885; Q9967